=== PATIENT | female | born 1990 | race Caucasian/White ===

== ENCOUNTER 2019-03-20 10:33 | Emergency (ER) | payer OTHER, SELFPAY ==
[2019-03-20 11:24] LABS: #Eosinphils 0.1 thou/uL (0.0-0.7); #Lymphocytes 2.8 thou/uL (1.20-3.40); #Monocytes 0.5 thou/uL (0.11-0.59); #Neutrophils 4.1 thou/uL (1.40-6.50); %Basophils 0.2 % (0.0-1.0); %Monocytes 6.2 % (0.0-10.0); %Neutrophils 54.6 % (42.0-75.0); Hemoglobin 13.5 g/dL (12.0-16.0); Mean Corpuscular HGB CONC 33.5 g/dL (32.0-36.0); Mean Corpuscular Hemoglobin 30.2 pg (27.0-31.0); Mean Corpuscular Volume 90.1 fL (78.0-98.0); Mean Platelet Volume 7.3 fL (7.4-10.4); Platelet Count 282 thou/uL (130-400); RBC Distribution Width 12.6 % (11.5-14.5); Red Blood Cell (RBC) Count 4.48 mill/uL (4.20-5.40); White Blood Cell (WBC) Count 7.5 thou/uL (4.8-10.8)
[2019-03-20 11:37] LABS: Bacteria/HPF None Seen HPF (None Seen); Bilirubin Negative (Negative); Blood, Urine 2+ (Negative); Clarity Clear (Clear); Glucose, Urine (Dipstick) Normal (Negative); Leukocyte Negative Leu/uL (Negative); Nitrite Negative (Negative); Protein, Urine (Dipstick) Negative (Neg-Trace); RBC/HPF 0-3 HPF (0-3); Urobilinogen Normal mg/dL (Less than 2); WBC/HPF 0-3 HPF (0-3)
[2019-03-20 11:47] LABS: HCG, Total Quant 2204.14 mIU/mL (See Ranges)
[2019-03-20 11:51] LABS: Thyroid Stimulating Hormone 1.5435 uIU/mL (0.35-4.94)
--- NOTE | 2019-03-20 12:44 | ULT ---
ULTRASOUND PELVIC ULTRASOUND TRANSVAGINAL DOPPLER DUPLEX: DATE: 03/20/2019 HISTORY: 29-year-old female with pelvic pain TECHNIQUE: Transabdominal transducer and endovaginal transducer used to visualize intrapelvic contents with purvis scale, color-flow, and spectral analysis. FINDINGS: There is an intrauterine gestational sac containing a yolk sac and an embryonic pole, with crown-rump length of 0.2 cm corresponding to 5 weeks 5 days gestational age. Embryonic heart rate: 110 bpm. Small, 1.2 x 0.8 x 0.8 cm slightly hypoechoic/intermediate echogenicity structure adjacent to the ges tational sac may or may represent small focus of subchorionic hemorrhage. No free fluid in the cul-de-sac. Ovaries are not enlarged. Blood flow demonstrated in both ovaries by Doppler. IMPRESSION: 1. [facility] live first trimester intrauterine gestation estimated to be 5 weeks 5 days gestational a ge. 2. Possible small subchorionic hemorrhage.
== END 2019-03-20 13:13 | disposition home or self-care (01) ==
LOC: ERS 10:33
DX: O20.0 Threatened abortion (principal); O23.591 Infection of other part of genital tract in pregnancy, first trimester; B96.89 Other specified bacterial agents as the cause of diseases classified elsewhere; Z3A.01 Less than 8 weeks gestation of pregnancy; Z79.84 Long term (current) use of oral hypoglycemic drugs
CPT/HCPCS: 36415; 76856; 81003; 81015; 84443; 84702; 85025; 86900; 86901; 87480; 87491; 87510; 87591; 87660